=== PATIENT | male | born 1960 | race Caucasian/White ===

== ENCOUNTER 2017-04-01 00:29 | Day surgery (SDC) | payer OTHER ==
[~2017-04-01] VITALS: Ht 175.3 cm; Wt 116.0 kg
[~2017-04-01 00:29] MED LIST: HYG25 PO; LISI-567 PO
[2017-04-01] MEDS ORDERED: Sodium Chloride LOK Flush 10 mL Syringe IV PRN (06:00)
[2017-04-01] MEDS ORDERED: 0.9% Sodium Chloride 1,000 ML IV SCH (06:00)
[2017-04-01] MEDS ORDERED: fentaNYL-PF 50 mCg/mL 2 mL Inj IVPUSH PRN (06:00)
[2017-04-01 10:54] VITALS: BP 134/97; PULSE 95; RESP 16; O2SAT 98
[2017-04-01 12:14] VITALS: BP 132/85; PULSE 86; RESP 14; O2SAT 94
[2017-04-01 12:24] VITALS: BP 108/87; PULSE 87; RESP 12; O2SAT 95
--- NOTE | 2017-04-01 13:17 | ENDO ---
[address] [address] ENDOSCOPY PROCEDURE PATIENT: MIQUEL SHI : 1960 MR#: [id number] ADMIT: 04/01/2017 JOB ID: [id number] PROCEDURE: Colonoscopy. INDICATIONS: Screening. Patient's ASA classification is II. Mallampati score is II. MEDICATIONS: Versed 4 mg, fentanyl 100 mcg. INSTRUMENT USED: PCF-H180AL. Prep quality was good. PROCEDURE DETAILS: After informed consent was obtained, the patient was brought to the GI suite, where he was placed on oxygen via nasal cannula and monitored with continuous pulse oximeter, telemetry, and blood pressure monitoring. A time-out was performed. Then, he was placed in a left lateral decubitus position and medications were administered for sedation. A digital rectal exam with palpation of the prostate was performed which was unremarkable. The colonoscope was then inserted into the rectum and advanced under direct visualization to the cecum, which was identified by the presence of the ileocecal valve and appendiceal orifice. Once the cecum was reached, the colonoscope was withdrawn back into the rectum as the mucosa and lumen were examined. In the rectum, retroflexion was performed. Following retroflexion, remaining air in the rectum was suctioned, and procedure was completed. FINDINGS: 1. In the distal sigmoid colon there were three polyps ranging in size from diminutive to 5 mm. They were removed with a combination of cold biopsy forceps and cold snare. 2. The remainder of the colon exam was otherwise unremarkable. IMPRESSION: Three sigmoid colon polyps. Otherwise normal exam from rectum to cecum. RECOMMENDATIONS: 1. Await polyp pathology results to determine subsequent colonoscopy. 2. Follow up in GI clinic as needed. COMPLICATIONS: None. ESTIMATED BLOOD LOSS: Less than 5 mL.
--- NOTE | 2017-04-04 13:01 | PATH ---
SURGICAL PATHOLOGY Attending Physician:Taqueria Marcus CASE STATUS: Signed Out PATIENT NAME: MIQUEL SHI PID: [id number] : 1960 DATE COLLECTED:04/01/2017 22:44 SPECIMEN: Colon, Biopsy CLINICAL HISTORY: 1). SIGMOID COLON POLYPS X3 FINAL DIAGNOSIS: 1.SIGMOID COLON POLYPS: HYPERPLASTIC POLYPS INVOLVING THREE BIOPSY FRAGMENTS. ICD10 CODE K63.5 GROSS DESCRIPTION: The specimen is received in one formalin filled container labeled with the patient's name, sublabeled "sigmoid colon polyps X3" and consists of 5 portions of tissue which aggregate to 0.4 x 0.4 x 0.3 CM. The specimen is entirely submitted in one cassette. 04/01/2017 DAC MICRO DESCRIPTION: See diagnosis. ICD-9 CODES: CPT CODES: 1: 70531 Electronically Signed Out Maxi Myers MD [facility] [address], [place] [address] Technical component performed at [facility], [facility] [address], [address]
== END 2017-04-01 23:59 | disposition home or self-care (01) ==
LOC: END 00:29
PROVIDERS: ATTEND Internal Medicine Gastroenterology
DX: Z12.11 Encounter for screening for malignant neoplasm of colon (principal); K63.5 Polyp of colon; I10 Essential (primary) hypertension; E11.9 Type 2 diabetes mellitus without complications
CPT/HCPCS: 45380; 45385; G0500; J7030